=== PATIENT | male | born 1940 | race Hispanic/Latino ===

== ENCOUNTER → 2018-09-17 | Outpatient (CLI) | payer MEDICARE, OTHER ==
[~2018-09-17] MED LIST: ASPIRIN81 MG PO; FENOFIBRATE145 MG PO; FISH OIL 1,2001 EACH; FISH OIL OMEGA1 EACH PO; FORFIVO XL450 MG PO; GLUCOSAMINE CO1 EACH PO; LEVOCETIRIZINE D5 MG PO; LEVOTHYROXINE100 MCG PO; LOSARTAN-HCTZ1 EAC2 PO; OMEPRAZOLE20 M1 PO
--- NOTE | 2018-09-17 14:02 | Diagnostic Imaging Report ---
Examination: CT head without contrast Clinical Indication: Unsteady gait; mild cognitive impairment. Technique: Transaxial noncontrast images from the skull base through the vertex were obtained. Sagittal and coronal reformatted images were done. Dose modulation, iterative reconstruction, and/or weight based adjustment of the mA/kV was utilized to reduce the radiation dose to as low as reasonably achievable. Comparison: None. Findings: Scalp: No abnormalities. Bones: Intact. No fractures. No blastic or lytic lesions. Brain sulci: Appropriate for patient's age. Ventricles: Normal in size and configuration. No hydrocephalus. . Extra-axial space: No abnormalities. Parenchyma: There are mild patchy areas of low-attenuation within subcortical and periventricular white matter, nonspecific, but could represent microvascular ischemic disease. No masses, hemorrhage, or acute or chronic cortical based vascular insults. Suprasellar region: No abnormalities. Craniocervical junction: The foramen magnum is patent. No Chiari one malformation. Impression: 1. No acute intracranial finding. 2. Mild chronic microvascular ischemic change. Signed by: Dr. Daily Lorenzo M.D. on 09/17/2018 1:58 PM
== END ==
LOC: CT 12:37
PROVIDERS: ATTEND Student in an Organized Health Care Education/Training Program
DX: G31.84 Mild cognitive impairment of uncertain or unknown etiology (principal); R26.9 Unspecified abnormalities of gait and mobility
CPT/HCPCS: 70450

== ENCOUNTER 2019-12-29 07:18 | Observation (INO) | payer MEDICARE, OTHER ==
[2019-12-26 11:46] LABS: BASOPHILS % 0.4 % (0.0-1.0); EOSINOPHILS # (AUTO) 0.1 (0.0-0.4); EOSINOPHILS % 1.5 % (0.0-6.0); HEMATOCRIT 42.2 % (38.2-49.6); HEMOGLOBIN 13.8 g/dL (14.0-18.0); LYMPHOCYTES # (AUTO) 1.4 (1.0-3.2); LYMPHOCYTES % 15.4 % (18.0-39.1); MEAN CORPUSCULAR HEMOGLOBIN 28.4 pg (28-32); MEAN CORPUSCULAR HGB CONC 32.7 g/dL (31-35); MEAN CORPUSCULAR VOLUME 86.8 fL (81-99); MONOCYTES # (AUTO) 0.8 (0.2-0.8); MONOCYTES % 8.8 % (4.4-11.3); NEUTROPHILS # (AUTO) 6.6 (2.1-6.9); NEUTROPHILS % 73.2 % (38.7-80.0); PLATELET COUNT 220 x10e3/uL (140-360); RED BLOOD COUNT 4.86 x10e6/uL (4.3-5.7); RED CELL DISTRIBUTION WIDTH 14.5 % (11.7-14.4)
[2019-12-26 12:00] LABS: ANION GAP 16.2 mmol/L (8-16); CALCIUM 9.5 mg/dL (8.4-10.2); CREATININE, SERUM 1.7 mg/dL (0.72-1.25); POTASSIUM 4.2 mmol/L (3.5-5.1)
[2019-12-26 12:09] LABS: INR 0.97; PROTHROMBIN TIME 13.4 seconds (11.9-14.5)
[2019-12-26 12:10] LABS: PARTIAL THROMBOPLASTIN TIME 33.1 seconds (23.8-35.5)
--- NOTE | 2019-12-26 12:47 | Diagnostic Imaging Report ---
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 Lungs:The lungs are mildly hyperexpanded. No focal consolidation or pulmonary edema. Trace scarring/atelectasis is noted at the lung bases. Increased AP diameter of the chest is noted. Flattening of the hemidiaphragms is noted. Pleura:No pleural effusion. No pneumothorax. Heart/Mediastinum:The cardiomediastinal silhouette is normal in size and contour. Thoracic aorta is slightly tortuous with calcifications of the aortic knob. Bones/Soft Tissues: No acute osseous abnormality. Moderate multilevel degenerative changes of the spine are noted. Upper abdomen: Unremarkable. IMPRESSION: 1. Negative for focal consolidation. 2. Increased AP diameter of the chest and hyperexpansion with basilar scarring can be seen in patients with emphysematous changes. Signed by: Antonino Lui MD on 12/26/2019 12:43 PM
[~2019-12-29] VITALS: Ht 172.7 cm; Wt 108.9 kg
[~2019-12-29 07:18] MED LIST changes: +ACETAMINOPHEN 1000 MG/100 ML 100 ML IV ONE; +ARICEPT5 MG PO; +CHOLESTYRAMINE P4 GM PO; +GABAPENTIN100 MG PO; +IBUPROFEN 800MG/ 200ML 200 ML IV ONE; +LIDOCAINE 1% W/EPINEPHRINE 20 ML VIAL ONE; +LIDOCAINE HCL (LTA) 4 ML SOLN ONE; +MULTI-VITAMIN1 EACH PO; +PLAVIX75 MG PO; +PRIMIDONE1 GM PO; +THROMBIN FOR SOLN 5,000 UNIT VIAL ONE; +TRULICITY0.75 MG/0. SC; +VANCOMYCIN HCL 1 GM VIAL ONE; +WELLBUTRIN XL150 MG PO; +ZINC SULFATE220 MG PO; +ZYRTEC-D TABLE1 EACH PO
[2019-12-29] MEDS ORDERED: CEFAZOLIN SOD 1 GM/NS 50ML 100 ML IV ONE (08:39)
[2019-12-29] MEDS ORDERED: PROMETHAZINE HCL (IM) 25 MG/ML VIAL IM PRN (10:00)
[2019-12-29] MEDS ORDERED: ONDANSETRON HCL INJ 2MG/ML 2ML 2 MG/ML VIAL IV PRN (10:00)
[2019-12-29] MEDS ORDERED: MORPHINE SULFATE 5 MG/ML VIAL IM PRN (10:00)
[2019-12-29] MEDS ORDERED: ACETAMINOPHEN 325 MG TAB PO PRN (10:00)
[2019-12-29] MEDS ORDERED: MAGNESIUM/ALUMINUM/SIMETHICONE 30 ML UDC PO PRN (10:00)
[2019-12-29] MEDS ORDERED: CARISOPRODOL 350 MG TAB PO PRN (10:00)
[2019-12-29] MEDS ORDERED: HYDROMORPHONE 2MG/ML 2 MG/ML ML IV PRN (10:00)
[2019-12-29] MEDS ORDERED: SUGAMMADEX SODIUM 200 MG/2 ML VIAL IV ONE (10:01)
--- OUTSIDE RECORDS SUMMARY | 2019-12-29 10:39 | XMS REPORT | Continuity of Care Document ---
Author Author Formerly [facility] t Organization [facility] Address [address] [place] [address] Phone Unavailable Care Team Providers Care Craniologist Name Role Phone BRITTANY STEVE Attphys Unavailable LEYDA CROUCH M.D. Attphys Unavailabl e YEYO BARON M.D. Attphys Unavailable DOE GUPTA M.D. Attphys Unavailable SE, ECHO Attphys Unavailable MARY MICHAUD M.D. Attphys Unavailable LENA CAM MD Attphys Unavailable Jairo CHANDLER Attphys Unavailable ZOILA VAZQUEZ M.D. Attphys Unavailabl e SE, NUCLEAR Attphys Unavailable Problems Condition Name Condition Details Condition Category Status Onset Date Resolution Date Last Treatment Date Treating Clinician Comments Source Thyroid disorder Thyroid disorder Problem Active [facility] Hypertension Hypertension Problem Active [facility] Dyslipidemia Dyslipidemia Problem Active [facility] Chronic venous insufficiency Chronic venous insufficiency Problem Active [facility] Obesity Obesity Problem Active [facility] Shortness of breath Shortness of breath Problem Active [facility] Lung nodule Lung nodule Problem Active [facility] Status post transcatheter aortic valve replacement Sta tus post transcatheter aortic valve replacement Problem Active [facility] Chronic orthostatic hypotension Chronic orthostatic hypotension Pro blem Active [facility] Preoperative cardiovascular examination Preoperative cardiov ascular examination Problem Active [facility] Dizziness Dizziness Problem Active [facility] Sensorineural hearing loss (SNHL) of both ears Sensori neural hearing loss (SNHL) of both ears Problem Active [facility] Allergies, Adverse Reactions, Alerts This patient has no known allergies or adverse reactions. Family History Family Member Diagnosis Comments Start Date Stop Date Source Mother Family history of malignant neoplasm [facility] Social History Smoking Status Start Date Stop Date Source Never smoked tobacco (finding) [facility] Medications Ordered Medication Name Filled Medication Name Start Date Stop Da te Current Medication? Ordering Clinician Indication Dosage Frequency Signature (SIG) Comments Components Source Plavix 75 MG Oral Tablet Plavix 75 MG Oral Tablet 2019-08-01 00:00:00 Yes M.D. 1 QD TAKE 1 TABLET DAILY [facility] Aspirin 81 MG Oral Tablet Delayed Release Aspirin 81 M G Oral Tablet Delayed Release 2017-11-06 00:00:00 Yes M.D. TAKE 1 TAB LET BY MOUTH EVERY DAY [facility] Donepezil HCl - 10 MG Oral Tablet Donepezil HCl - 10 MG Oral Tablet 2017-11-06 00:00:00 Yes M.D. 1 QD TAKE [address] [facility] Omeprazole 20 MG Oral Tablet Delayed Release Omeprazol e 20 MG Oral Tablet Delayed Release 2017-11-06 00:00:[address] [facility] Alfuzosin HCl ER 10 MG Oral Tablet Extended Release 24 Hour Alfuzosin HCl ER 10 MG Oral Tablet Extended Release 24 Hour 2017-11-06 00:00:00 Yes M.D. 1 QD TAKE [address] [facility] Primidone 50 MG Oral Tablet Primidone 50 MG Oral Tablet 2017-11-06 00:00:00 Yes M.D. BID [facility] Levothyroxine Sodium 100 MCG Oral Tablet Levothyroxine Sodium 100 MCG Oral Tablet 2017-11-06 00:00:00 Yes M.D. 1 QD TAKE [address] [facility] buPROPion HCl ER (XL) 150 MG Oral Tablet Extended Rele ase 24 Hour buPROPion HCl ER (XL) 150 MG Oral Tablet Extended Release 24 Hour 2017-11-06 00:00:[address] [facility] Fenofibrate 160 MG Oral Tablet Fenofibrate 160 MG Oral Table t 2017-11-06 00:00:00 Yes M.D. 1 QD TAKE [address] [facility] Cholestyramine POWD Cholestyramine POWD Yes M.D. [facility] Finasteride 5 MG Oral Tablet Finasteride 5 MG Oral Tablet Y es M.D. 1 QD TAKE [address] [facility] Gabapentin 100 MG Oral Capsule Gabapentin 100 MG Oral Capsule Yes M.D. TAKE 2 CAPSULES AT BEDTIME. [facility] Trulicity 0.75 MG/0.5ML Subcutaneous Solution Pen-inje ctor Trulicity 0.75 MG/0.5ML Subcutaneous Solution Pen-injector Yes M.Carley [facility] Zyrtec TABS Zyrtec TABS Yes M.Carley U [facility] Zinc 50 MG Oral Tablet Zinc 50 MG Oral Tablet Yes M.Carley [facility] Vitamin D-3 CAPS Vitamin D-[address]S [address] [facility] Losartan Potassium-HCTZ 50-12.5 MG Oral Tablet Losarta n Potassium-HCTZ 50-12.5 MG Oral Tablet Yes M.D. 1 QD TAKE [address] [facility] Clopidogrel Bisulfate TABS Clopidogrel Bisulfate TABS Yes M.Carley [facility] Vital Signs Vital Name Observation Time Observation Value Comments Source Body temperature 2019-12-02 14:51:00 98 [degF] Method: Temporal [facility] Systolic blood pressure 2019-08-08 10:09:00 179 mm[Hg] [facility] Diastolic blood pressure 2019-08-08 10:09:00 84 mm[Hg] [facility] Body height 2019-08-08 10:09:00 75 [in_us] [facility] Weight 2019-08-08 10:09:00 283 [lb_av] [facility] Body mass index (BMI) [Ratio] 2019-08-08 10:09:00 35.37 kg/m2 [facility] Body temperature 2019-08-08 10:09:00 97.1 [degF] [facility] Heart Rate 2019-08-08 10:09:00 89 /min [facility] Systolic blood pressure 2019-08-01 14:55:00 150 mm[Hg] Loca tion: LUE; Position: Sitting [facility] Diastolic blood pressure 2019-08-01 14:55:00 93 mm[Hg] Loc ation: LUE; Position: Sitting [facility] Body height 2019-08-01 14:55:00 75 [in_us] [facility] Weight 2019-08-01 14:55:00 283 [lb_av] [facility] Body mass index (BMI) [Ratio] 2019-08-01 14:55:00 35.37 kg/m2 [facility] Heart Rate 2019-08-01 14:55:00 66 /min Location: L Radial; [facility] Systolic blood pressure 2019-07-13 10:53:00 123 mm[Hg] Loca tion: LUE; Position: Sitting [facility] Diastolic blood pressure 2019-07-13 10:53:00 87 mm[Hg] Loc ation: LUE; Position: Sitting [facility] Systolic blood pressure 2019-07-13 10:52:00 143 mm[Hg] Loca tion: LUE; Position: Supine [facility] Diastolic blood pressure 2019-07-13 10:52:00 89 mm[Hg] Loc ation: LUE; Position: Supine [facility] Heart Rate 2019-07-13 10:52:00 80 /min Location: L Radial; [facility] Systolic blood pressure 2019-04-25 11:22:00 94 mm[Hg] [facility] Diastolic blood pressure 2019-04-25 11:22:00 66 mm[Hg] [facility] Body height 2019-04-25 11:22:00 75 [in_us] [facility] Weight 2019-04-25 11:22:00 282 [lb_av] [facility] Body mass index (BMI) [Ratio] 2019-04-25 11:22:00 35.25 kg/m2 [facility] Systolic blood pressure 2019-04-11 12:42:00 129 mm[Hg] [facility] Diastolic blood pressure 2019-04-11 12:42:00 82 mm[Hg] [facility] Body height 2019-04-11 12:42:00 75 [in_us] [facility] Weight 2019-04-11 12:42:00 282 [lb_av] [facility] Body mass index (BMI) [Ratio] 2019-04-11 12:42:00 35.25 kg/m2 [facility] Systolic blood pressure 2019-03-29 14:38:00 133 mm[Hg] Loca tion: LUE; Position: Sitting [facility] Diastolic blood pressure 2019-03-29 14:38:00 84 mm[Hg] Loc ation: LUE; Position: Sitting [facility] Body height 2019-03-29 14:38:00 75 [in_us] [facility] Weight 2019-03-29 14:38:00 283 [lb_av] [facility] Body mass index (BMI) [Ratio] 2019-03-29 14:38:00 35.37 kg/m2 [facility] Heart Rate 2019-03-29 14:38:00 89 /min Location: L Radial; Q uality: Normal [facility] BP Systolic 2019-01-03 11:00:00 130 mm[Hg] [facility] BP Diastolic 2019-01-03 11:00:00 78 mm[Hg] [facility] Height 2019-01-03 11:00:00 75 [in_us] [facility] Weight 2019-01-03 11:00:00 285 [lb_av] [facility] Body Mass Index Calculated 2019-01-03 11:00:00 35.62 kg/m2 [facility] BP Systolic 2018-12-20 10:18:00 140 mm[Hg] Location: BRYN Roberts on: Sitting [facility] BP Diastolic 2018-12-20 10:18:00 86 mm[Hg] Location: BRYN Roberts on: Sitting [facility] Height 2018-12-20 10:18:00 75 [in_us] [facility] Weight 2018-12-20 10:18:00 285 [lb_av] [facility] Body Mass Index Calculated 2018-12-20 10:18:00 35.62 kg/m2 [facility] Heart Rate 2018-12-20 10:18:00 90 /min [facility] BP Systolic 2017-11-26 12:08:00 124 mm[Hg] [facility] BP Diastolic 2017-11-26 12:08:00 75 mm[Hg] [facility] Height 2017-11-26 12:08:00 75 [in_us] [facility] Weight 2017-11-26 12:08:00 287 [lb_av] [facility] Body Mass Index Calculated 2017-11-26 12:08:00 35.87 kg/m2 [facility] Heart Rate 2017-11-26 12:08:00 70 /min [facility] BP Systolic 2017-11-06 09:59:00 163 mm[Hg] [facility] BP Diastolic 2017-11-06 09:59:00 80 mm[Hg] [facility] Height 2017-11-06 09:59:00 75 [in_us] [facility] Weight 2017-11-06 09:59:00 284 [lb_av] [facility] Body Mass Index Calculated 2017-11-06 09:59:00 35.5 kg/m2 [facility] Heart Rate 2017-11-06 09:59:00 75 /min [facility] Procedures Procedure Date / Time Performed Performing Clinician Sour e CT Chest biopsy needle [place] guided [id number] 2019-04-25 00:00:00 [facility] PET CT Tumor [id number] 2019-04-25 00:00:00 [facility] [QL] CMP W/EGFR 2019-03-29 00:00:00 [facility] [[facility]] CBC (INCLUDES DIFF/PLT) 2019-03-29 00:00:[address] [facility] [QL] CMP W/EGFR 2019-03-29 00:00:00 [facility] [QL] CBC (INCLUDES DIFF/PLT) 2019-03-29 00:00:00 [facility] [[facility]] B TYPE NATRIURETIC PEPTIDE (BNP) 2017-11-13 00:00:00 [facility] [[facility]] CBC (INCLUDES DIFF/PLT) 2017-11-13 00:00:00 [facility] [QL] CMP W/EGFR 2017-11-13 00:00:00 [facility] [QL] HEMOGLOBIN A1c 2017-11-13 00:00:00 [facility] [QL] LIPID PANEL 2017-11-13 00:00:00 [facility] [QL] MAGNESIUM 2017-11-13 00:00:00 [facility] [[facility]] TSH, 3RD GENERATION 2017-11-13 00:00:00 [facility] of Tonsillectomy [facility] History of Hernia Repair [facility] History of Gallbladder Surgery [facility] History of Cataract Surgery [facility] Plan of Care Planned Activity Planned Date Details Comments Source Future Scheduled Test [QLH] CMP W/EGFR [code = [ QLH] CMP W/EGFR] Before next appointment [facility] Future Scheduled Test [QLH] CBC (INCLUDE S DIFF/PLT) [code = [QLH] CBC (INCLUDES DIFF/PLT)] Before next appointment [facility] Future Scheduled Test [QLH] CMP W/EGFR [code = [ QLH] CMP W/EGFR] Before next appointment [facility] Future Scheduled Test [QLH] CBC (INCLUDE S DIFF/PLT) [code = [QLH] CBC (INCLUDES DIFF/PLT)] Before next appointment [facility] Future Appointment 2020-07-16 10:30:[address] [facility] Future Appointment 2020-07-06 11:00:00 [facility] 2020-07-06 10:15:00 ECHO SE, [facility] Encounters Start Date/Time End Date/Time Encounter Type Admission Type Attendi [facility] Care Department Encounter ID Source 2019-06-29 06:25:00 Inpatient MHSE MHSE [id number] [facility] 2019-12-02 15:00:00 2019-12-02 15:00:00 Appointment; LEYDA BERG M.D. GOMEZ-RIVERA, FERNANDO, M.D. [facility] Gallito rhinolaryngology [facility] [id number] [facility] 2019-11-21 11:00:00 2019-11-21 11:00:00 Appointment; YEYO BARON M.D. GEORGE, BENNET, M.D. [facility] [id number] [facility] 2019-11-16 13:24:00 2019-11-16 13:24:00 Outpatient MHSE PUL [id number] [facility] 2019-11-11 12:26:00 2019-11-11 12:26:00 Outpatient MHSE CAR [id number] [facility] 2019-10-12 13:01:00 2019-10-12 13:01:00 Outpatient MHSE CAR [id number] [facility] 2019-09-12 12:53:00 2019-09-12 12:53:00 Outpatient MHSE CAR [id number] [facility] 2019-08-11 10:04:00 2019-08-11 10:04:00 Outpatient MHSE CAR [id number] [facility] 2019-08-08 13:34:00 2019-08-08 13:34:00 Outpatient MHSE PUL [id number] [facility] 2019-08-08 10:00:00 2019-08-08 10:00:00 Appointment; DOE GUPTA M.D. NAHAS, CESAR, M.D. [facility] Cardiothoracic & Vascular Surgery [facility] [id number] [facility] 2019-08-01 15:15:00 2019-08-01 15:15:00 Appointment; YEYO BARON M.D. GEORGE, BENNET, M.D. [facility] [id number] [facility] 2019-08-01 14:30:00 2019-08-01 14:30:00 Appointment; SE, ECHO SE, ECHO [facility] [id number] [facility] 2019-07-13 10:30:00 2019-07-13 10:30:00 Appointment; YEYO BARON M.D. GEORGE, BENNET, M.D. [facility] [id number] [facility] 2019-06-29 06:30:00 2019-06-29 06:30:00 Appointment; DOE GUPTA M.D. NAHAS, CESAR, M.D. [facility] [id number] [facility] 2019-05-16 10:00:00 2019-05-16 10:00:00 Appointment; DOE GUPTA M.D. NAHAS, CESAR, M.D. [facility] Cardiothoracic & Vascular [facility] [id number] [facility] 2019-05-12 13:20:00 2019-05-12 13:20:00 Outpatient MHSE MHSE [id number] [facility] 2019-05-04 07:43:00 2019-05-04 07:43:00 Outpatient MHSE MHSE [id number] [facility] 2019-04-25 11:15:00 2019-04-25 11:15:00 Appointment; DOE GUPTA M.D. NAHAS, CESAR, M.D. [facility] Cardiothoracic & Vascular Surgery [facility] [id number] [facility] 2019-04-20 10:30:00 2019-04-20 10:30:00 Appointment; DOE GUPTA M.D. NAHAS, CESAR, M.D. [facility] Cardiothoracic & Vascular Surgery [facility] [id number] [facility] 2019-04-20 10:20:00 2019-04-20 10:20:00 Appointment; BEL MICHAUD M.D. DHOBLE, ABHIJEET, M.D. [facility] [id number] [facility] 2019-04-14 09:22:00 2019-04-14 09:22:00 Outpatient MHSE MHSE [id number] [facility] 2019-04-11 12:30:00 2019-04-11 12:30:00 Appointment; DOE GUPTA M.D. NAHAS, CESAR, M.D. [facility] Cardiothoracic & Vascular Surgery [facility] [id number] [facility] 2019-04-06 15:15:00 2019-04-06 15:15:00 Appointment; YEYO BARON M.D. GEORGE, BENNET, M.D. [facility] Center for Advanced Heart Failure [facility] [id number] [facility] 2019-04-01 08:03:00 2019-04-01 08:03:00 Outpatient MHSE CAR [id number] [facility] 2019-03-29 14:30:00 2019-03-29 14:30:00 Appointment; YEYO BARON M.D. GEORGE, BENNET, M.D. [facility] [id number] [facility] 2019-01-03 10:15:00 2019-01-03 10:15:00 Appointment; DOE GUPTA M.D. NAHAS, CESAR, M.D. [facility] Cardiothoracic & Vascular Surgery [facility] [id number] [facility] 2018-12-20 10:00:00 2018-12-20 10:00:00 Appointment; YEYO BARON M.D. GEORGE, BENNET, M.D. [facility] [id number] [facility] 2018-12-14 10:15:00 2018-12-14 10:15:00 Outpatient MHSE MHSE [id number] [facility] 2018-11-16 11:00:00 2018-11-16 11:00:00 Appointment; YEYO BARON M.D. GEORGE, BENNET, M.D. [facility] UTP [id number] [facility] 2018-11-12 11:00:00 2018-11-12 11:00:00 Appointment; ARGELIA CAM MD MANRIQUE, CARLOS, MD [facility]TP [id number] [facility] 2018-05-27 11:00:00 2018-05-27 11:00:00 Appointment; ZOILA VAZQUEZ M.D. ESCOBAR CAMARGO, JORGE, M.D. [facility] [id number] [facility] 2017-11-26 11:00:00 2017-11-26 11:00:00 Appointment; ZOILA VAZQUEZ M.D. ESCOBAR CAMARGO, JORGE, M.D. [facility] [id number] [facility] 2017-11-17 08:30:00 2017-11-17 08:30:00 Appointment; SE, NUCLEAR SE, NUCLEAR [facility] [id number] [facility] 2017-11-12 08:00:00 2017-11-12 08:00:00 Appointment; SE, ECHO SE, ECHO [facility] UTP [id number] [facility] 2017-11-12 08:00:00 2017-11-12 08:00:00 Appointment; SE, ECHO SE, ECHO [facility] [id number] [facility] 2017-11-06 09:45:00 2017-11-06 09:45:00 Appointment; ZOILA VAZQUEZ M.D. ESCOBAR CAMARGO, JORGE, M.D. [id number] Results Test Description Test Time Test Comments Results Result Comments Source CHEST 2 VIEWS 2019-12-26 12:41:00 [facility] 1940 Sex: M [facility] [address] [address] Patient Name: LUISITO CHUN MR #: [id number] : 1940 Age/Sex: 79/M Req #: [id number] [facility] Physician: Ordered by: BRITTANY STEVE MD Report #: [id number] Location: OR Room/Bed: Procedure: [id number] DX/CHEST 2 VIEWS Exam Date: 12/26/19 Exam Time: 1145 REPORT STATUS: Signed Exam: CHEST 2 VIEWS Date: 12/26/2019 12:42 PM INDICATION: [id number] PRE OP Comparison: None FINDINGS: Lines/Tubes:Prosthetic cardiac valve is noted on lateral view and not well visualized on AP view. Lungs:The lungs are mildly hyperexpanded. No focal consolidation or pulmonary edema. Trace scarring/atelectasis is noted at the lung bases. Increased AP diameter of the chest is noted. Flattening of the hemidiaphragms is noted. Pleura:No pleural effusion. No pneumothorax. Heart/Mediastinum:The cardiomediastinal silhouette is normal in size and contour. Thoracic aorta is slightly tortuous with calcifications of the aortic knob. Bones/Soft Tissues: No acute osseous abnormality. Moderate multilevel degenerative changes of the spine are noted. Upper abdomen: Unremarkable. IMPRESSION: 1. Negative for focal consolidation. 2. Increased AP diameter of the chest and hyperexpansion with basilar scarring can be seen in patients with emphysematous changes. Signed by: Kellee Lui MD on 12/26/2019 12:43 PM Dictated By: KELLEE LUI MD [id number] Transcribed By: PETER on 12/26/19 1243 COPY TO: BRITTANY VALIENTE MD PET CT Lung solitary pulm nodule [id number] 2019-05-12 13:53:00 PROCEDURE INFORMATION:Exam: PET/CT Skull Base to Mid-thighExam date and time: 05/12/2019 2:40 PMAge: 78 years oldClinical indication: Solitary pulmonary nodule; Additional info: R91.1 solitarypulmonary nodule/ctdi= 13.04 mgy, dlp= 1365mgy*cmTreatment strategy for malignancy (PET staging): Initial Staging (PI)LABS AND CLINICAL REPORTS:Glucose: 117 mg/dlTECHNIQUE:Imaging protocol: Following at least four-hour fasting and following theinjection of F-18-FDG, low dose CT images were obtained from the orbital meatalline through the pelvis. Then, PET images were obtained through the sameregion. Attenuation corrected images were constructed using the CT scan. Fusedimages of PET and CT were reviewed. The standardized uptake values (SUV)reported below are maximum values within a region of interest, expressed ingm/ml.3D rendering: MIP and/or 3D reconstructed images were created by thetechnologist.Radiopharmaceutical: 8 mCi F18-FDG, IVTime of imaging post radiopharmaceutical administration: 1 hourInjection site: Right antecubital regionCOMPARISON:CT 04/14/2019FINDINGS:Head: No suspicious activity.Neck: No suspicious activity.Chest: 3 cm masslike opacity in the right middle lobe is not significantlychanged accounting for differences in slice thickness and has SUV of 7.7.Adjacent tree-in-bud opacities in the right middle lobe and subpleuralground-glass opacities in the lower lobes and lingula are stable. Se veral smalllymph nodes in the mediastinum are stable with a 1 cm lower right paratrachealnode having an SUV of 3.1, image 93.Abdomen and Pelvis: No suspicious activity.Bones/joints: No suspicious activity.Soft tissues: No suspicious activity.IMPRESSION:3 cm masslike opacity right middle lobe of the lung is active. Although biopsydemonstrated inflammatory change, bronchogenic carcinoma remains possible.Repeat biopsy or follow-up CT in 3 months.Airspace disease in the right middle lobe is stable and may reflect aninfectious bronchiolitis. Stable airspace disease in the lower lobes andlingula may reflect an interstitial pneumonia or pneumonitis.1 cm lymph node in the mediastinum is mildly active and indeterminate forreactive node versus metastasis.Hank Crockett MD On 05/13/2019 07:49:15; [id number] by: Hank Crockett MDDictated Date/time: 05/13/19 07:49Electronically Signed by: Hank Crockett MD 05/12/2006:49FINAL REPORT [facility] VR Biopsy lung/chest [id number] 2019-05-04 09:09:00 P ROCEDURE INFORMATION:Exam: IR Percutaneous Needle Lung BiopsyExam date and time: 05/04/2019 8:39 AMAge: 78 years oldClinical indication: 3.8 cm mass in the right lung found incidentally duringworkup for TAVR.NEEDLE BIOPSY RIGHT LUNG:Procedure: The procedure was done in the Interventional CT scanner usingsterile technique, local anesthetic and CT guidance (total DLP 1418.54 mGycm).The procedure was done without moderate sedation.Preliminary CT showed a persistent mass in the lateral segment of the rightmiddle lobe. The lesion appeared slightly smaller compared to the previous CT.A 19 gauge guide needle was then placed from a right lateral intercostaladjacent to the lesion. Multiple cores of tissue were then obtained using acoaxial 20 gauge cutting needle and placed into formalin for histology. Some ofthe cores appeared to be mucinous. One core was also sent for cultures. Postbiopsy images showed no pneumothorax or other complication.The patient tolerated the procedure well without immediate complications, andwas transferred to Special Procedures Observation in stable condition.Follow-up chest radiographs showed no evidence of pneumothorax.Comment: The lesion may be decreasing in size, suggesting an inflammatoryrather than neoplastic lesion, although this is uncertain. If the pathology isnondiagnostic, consider follow-up imaging rather than re-biopsy.Uri Madrigal MD On 05/04/2019 16:59:07; [id number]--Izmn by: Uri Ruiz MDDictated Date/time: 05/04/19 16:59Electronically Signed by: Uri Ruiz MD 05/04/2015:59FINAL REPORT [facility] CTA Chest/Abd/Pelvis TAVR [id number] 2019-04-15 16:21:00 Radiation Dose CTDIVOL = 0 (mGy): DLP = 1080.7 (mGy-cm)PROCEDURE INFORMATION:Exam: CT Angiography Chest With ContrastExam date and time: 04/14/2019 11:38 AMAge: 78 years oldClinical indication: Injury or trauma; Additional info: Shortness ofbreath/tavr ctaTECHNIQUE:Imaging protocol: Computed tomographic angiography of the chest withintravenous contrast.3D rendering: MIP and/or 3D reconstructed images were created by thetechnologist.Total DLP: 1080.7 mGy-cmRadiation optimization: All CT scans at this facility use at least one of thesedose optimization techniques: automated exposure control; mA and/or kVadjustment per patient size (includes targeted exams where dose is matched toclinical indication); or iterative reconstruction.Contrast material: OMNI 350; Contrast volume: 90 ml; Contrast route: IV; COMPARISON:No relevant prior studies available.FINDINGS:Pulmonary arteries: Normal. No pulmonary emboli.Aorta: Unremarkable. No aortic aneurysm. No aortic dissection.Lungs: Right middle lobe pulmonary nodule (series 3, image 126) measures 3.8 x2.7 cm with spiculated margins. There is a cluster of tree-in-bud nodulessuperior and anterior to the mass in the right middle lobe. No consolidationidentified. No endobronchial abnormality is evident.Pleural space: Unremarkable. No pneumothorax. No pleural effusion.Heart: Unremarkable. No cardiomegaly. No pericardial effusion.Lymph nodes: Unremarkable. No enlarged lymph nodes.Bones/joints: No acute osseous abnormalities. No suspicious lytic or blasticosseous lesions.Soft tissues: Unremarkable. PROCEDURE INFORMATION:Exam: CT Angiography Abdomen and Pelvis With ContrastExam date and time: 04/14/2019 11:38 AMAge: 78 years oldClinical indication: Injury or trauma; Additional info: Shortness ofbreath/tavr ctaTECHNIQUE:Imaging protocol: Computed tomographic angiography of the abdomen and pelviswith intravenous contrast material.3D rendering: MIP and/or 3D reconstructed images were created by thetechnologist.Total DLP: 1080.7 mGy-cmRadiation optimization: All CT scans at this facility use at least one of thesedose optimization techniques: automated exposure control; mA and/or kVadjustment per patient size (includes targeted exams where dose is matched toclinical indication); or iterative reconstruction.Contrast material: OMNI 350; Contrast volume: 90 ml; Contrast route: IV; COMPARISON:No relevant prior studies available.FINDINGS:Aorta: No aortic aneurysm. No aortic dissection.Celiac trunk and mesenteric arteries: No occlusion or significant stenosis.Renal arteries: No occlusion or significant stenosis.Right iliac arteries: Right common iliac artery: 14 mm Right External iliacartery: 10 mmRight femoral/popliteal arteries: Right Common femoral artery: 12 mmLeft iliac arteries: Left common iliac artery: 16 mm Left External iliacartery: 10 mmLeft femoral/popliteal arteries: Left common femoral artery: 11 mmLiver: Diffuse hepatic steatosis is present.Gallbladder and bile ducts: Gallbladder has been removed.Pancreas: Unremarkable. No mass. No ductal dilation.Spleen: Unremarkable. No splenomegaly.Adrenals: Unremarkable. No mass.Kidneys and ureters: Unremarkable. No solid mass. No hydronephrosis.Stomach and bowel: Sigmoid and descending colonic diverticulosis is presentwithout evidence for diverticulitis.Appendix: No evidence of appendicitis.Intraperitoneal space: Unremarkable. No free air. No significant fluidcollection.Lymph nodes: Unremarkable. No enlarged lymph nodes.Bladder: Unremarkable. No mass.Reproductive: Unremarkable as visualized.Bones/joints: No acute osseous abnormalities. No suspicious lytic or blasticosseous lesions.Soft tissues: Small periumbilical hernia contains fat only. IMPRESSION:CT Angiography Chest With ContrastThe chest impression is included in the impression of the abdomen and pelvis.CT Angiography Abdomen and Pelvis With Contrast1. 3.8 cm spiculated right middle lobe pulmonary mass, worrisome for lungadenocarcinoma. PET-CT or tissue diagnosis is suggested for further evaluation.2. Cluster of tree-in-bud nodules anterior to the right middle lobe pulmonarymass could represent endobronchial infection or satellite nodule/lymphangitiscarcinomatosis.3. Pre TAVR measurements for the iliac and femoral arteries as described above.Please see same-day CT angiography of the chest for further details.4. Hepatic steatosis.5. Sigmoid and descending colonic diverticulosis without diverticulitis.Dominic Lutz MD On 04/17/2019 22:26:09; [id number]--Pbzd by: Dominic Lutz MDDictated Date/time: 04/17/19 22:39Electronically Signed by: Dominic Lutz MD 04/16/2021:39FINAL REPORT [facility] CTA Heart/Coronary art TAVR [id number] 2019-04-15 16:21:00 Radiation Dose CTDIVOL = 0 (mGy): DLP = 575.2 (mGy-cm)PROCEDURE INFORMATION:Exam: CTA Heart and Coronary Arteries with IV ContrastExam date and time: 04/14/2019 11:38 AMAge: 78 years oldClinical indication: Pain; Additional info: Shortness of breath/please alsoscan the carotids and dictate on reportTECHNIQUE:Imaging protocol: CTA heart, coronary arteries and bypass grafts (when present)with IV contrast material. A step and shoot prospective trigger technique wasused.Sequences: A noncontrast calcium score was acquired followed by acontrast-enhanced coronary CT angiography.3D renderinD reconstructions were obtained and submitted forinterpretation. DICOM images are available. MIP and/or 3D reconstructed imageswere created by the technologist.Total DLP: 575.2 mGy-cmScanner: 64/128/256/revolution scanner.Radiation optimization: All CT scans at this facility use at least one of thesedose optimization techniques: automated exposure control; mA and/or kVadjustment per patient size (includes targeted e xams where dose is matched toclinical indication); or iterative reconstruction.Contrast material: OMNI 350ML; Contrast volume: 100 ml; Contrast route: IV; Pharmacological intervention: 0.4 mg sub-lingual nitroglycerine was given toachieve coronary vasodilation. dosage Metoprolol was given to reduce heartrate.COMPARISON:No relevant prior studies available.FINDINGS:Aortic annulus: Tricuspid aortic valve. Aortic annulus: 37.6 x 39.1 mm. Area:129 sq mm. Perimeter: 136 mm.Annulus to origin of the left coronary artery: 17.5 mm. Annulus to origin ofthe right coronary artery: 21.7 mm.Impression:1. Preoperat norma TAVR measurements as above.2. Refer to CTA chest, abdomen and pelvis for measurements of the iliac andfemoral arteries and nonvascular findings including 3.8 cm possible malignantneoplasm in the right middle lobe of the lung.Hank Crockett MD On 04/19/2019 09:39:42; [id number]--Leox by: Hank Crockett MDDictated Date/time: 04/19/19 09:39Electronically Signed by: Hank Crockett MD 04/18/2008:39FINAL [facility] CBC (INCLUDES DIFF/PLT) 2019-03-29 16:25:01 Test Item WBC (test code = 6690-2) 9.6 {K/CMM} 3.7-10.4 RBC (test code = 789-8) 5.49 {M/CMM} 4.70-6.10 Hgb (test code = 718-7) 15.9 g/dl 14.0-18.0 Hct (test code = 00595-5) 47.2 % 42.0-54.0 MCV (test code = 787-2) 86.0 fL 80.0-94.0 MCH (test code = 785-6) 28.9 pg 27.0-31.0 MCHC (test code = 786-4) 33.6 g/dl 32.0-36.0 RDW; Above High Threshold (test code = 788-0) 15.1 % 11.5-14. 5 Platelet (test code = 15997-5) 227 {K/CMM} 133-450 Mean Platelet Volume (test code = 07181-5) 8.9 fL 7.4-10.4 [facility]] [id number] 16:25:01* Test Item Value Reference Range Interpretation Comments Segmented Neutrophils (test code = 32420-4) 68.7 % 45.0-75.0 Monocytes (test code = 03364-0) 7.7 % 2.0-12.0 Lymphocytes (test code = 94462-3) 22.5 % 20.0-40.0 Eosinophils (test code = 59428-4) 0.8 % 0.0-4.0 Basophils (test code = 706-2) 0.3 % 0.0-1.0 Segs-Bands # (test code = 50853-4) 6.6 {K/CMM} 1.5-8.1 Lymphocytes # (test code = 40930-4) 2.2 {K/CMM} 1.0-5.5 Monocytes # (test code = 66793-0) 0.7 {K/CMM} 0.0-0.8 Eosinophils # (test code = 34104-8) 0.1 {K/CMM} 0.0-0.5 [facility]] CMP [id number] 16:25:01* Test Item Value Reference Range Interpretation Comments Sodium Level; Below Low Threshold (test code = 2951-2) 133 {mEq/l} 135-145 Potassium Level (test code = 2823-3) 4.1 {mEq/l} 3.5-5.1 Chloride Level (test code = 5-0) 99 {mEq/l} 95-109 Carbon Dioxide (test code = 2027-9) 25 {mEq/l} 24-32 AGAP (test code = 46666-9) 13.1 {mEq/l} 10.0-20.0 Glucose Lvl (test code = 2345-7) 87 mg/dl 70-99 Adult reference range values reflect the clinical guidelinesof the [place] [employer]. Creatinine Lvl; Above High Threshold (test code = 2160-0) 1.80 m g/dl 0.50-1.40 Blood Urea Nitrogen; Above High Threshold (test code = 3094-0) 25 m g/dl 7-22 BUN/Creatinine Ratio (test code = 3097-3) 14 6-25 Total Protein; Above High Threshold (test code = 2885-2) 8.5 g/dl 6.4-8.4 Albumin Lvl (test code = 1751-7) 4.2 g/dl 3.5-5.0 Globulin; Above High Threshold (test code = 54368-1) 4.3 g/dl 2 .7-4.2 A/G Ratio (test code = 1759-0) 1.0 0.7-1.6 Calcium Level Total (test code = 31669-0) 9.6 mg/dl 8.5-10.5 ALT (test code = 1743-4) 55 u/l 0-65 AST; Above High Threshold (test code = 74130-3) 45 u/l 0-37 Alk Phos (test code = 1783-0) 94 u/l 39-136 The pediatric reference ranges for this test represent a CLSI-basedtransference of the CALIPER database of pediatric reference intervals to theCarl [facility] – McalesterCareerise analyzer (Clinical Biochemistry 46 (2013): 0160-2883). [facility] [employer] has not internally validated these referenceranges and therefore they should be used only in the context of a thoroughclinical assessment. Bili Total (test code = 1975-2) 0.4 mg/dl 0.2-1.3 eGFR (test code = 94056-4) 35 {ML/MIN/1.7} The eGFR is calculated using the CKD-EPI formula. In most young, healthyindividuals the eGFR will be >90 mL/min/1.73m2. The eGFR declines with age. AneGFR of 60-89 may be normal in some populations, particularly the elderly, forwhom the CKD-EPI formula has not been extensively validated. Use of the eGFR isnot recommended in the following populations:Individuals with unstable creatinine concentrations, including patients and those with serious co-morbid conditions.Patients with extremes in muscle mass or diet.The data above are obtained from the National Kidney Disease Education Program(NKDEP) which additionally recommends that when the eGFR is used in patientswith extremes of body mass index for purposes of drug dosing, the eGFR shouldbe multiplied by the estimated BMI. [facility] BRAIN [id number] 13:55:00 [place] [address] Patient Name: LUISITO CHUN MR #: [id number] : 1940 Age/Sex: 78/M Req #: [id number] Adm Physician: Ordered by: ARCADIO CHANDLER M.D. Report #: [id number] Location: CT Room/Bed: Procedure: [id number] CT/CT BRAIN WO Exam Date: 09/17/18 Exam Time: 1 317 REPORT STATUS: Signed Examin ation: CT head without contrast Clinical Indication: Unsteady gait; mild cogni tive impairment. Technique: Transaxial noncontrast images from the skull base through the vertex were obtained. Sagittal and coronal reformatted images were done. Dose modulation, iterative reconstruction, and/or weight based adjustme nt of the mA/kV was utilized to reduce the radiation dose to as low as reasona trevor achievable. Comparison: None. Findings: Scalp: No abnormaliti es. Bones: Intact. No fractures. No blastic or lytic lesions. Brain sul ci: Appropriate for patient's age. Ventricles: Normal in size and configuratio n. No hydrocephalus. . Extra-axial space: No abnormalities. Paren chyma: There are mild patchy areas of low-attenuation within subcortical and periventricular white matter, nonspecific, but could represent microvascular ischemic disease. No masses, hemorrhage, or acute or chronic cortical based v ascular insults. Suprasellar region: No abnormalities. Craniocervical shirley ction: The foramen magnum is patent. No Chiari one malformation. Impress ion: 1. No acute intracranial finding. 2. Mild chronic microvascular ischemic change. Signed by: Dr. Bereket Lorenzo M.D. on 09/17/2018 1:58 PM Dictated By: BEREKET CASTELAN MD [id number] Transcribed By: PETER on 09/17/18 13 58 COPY TO: ARCADIO CHANDLER M.D. [[facility]] CMP [id number] 10:29:00* Test Item Value Reference Range Interpretation Comments Glucose; Above High Threshold (test code = 2345-7) 118 mg/dL 65- 99 BUN (test code = 3094-0) 19 mg/dL 8-27 Creatinine; Above High Threshold (test code = 2160-0) 1.57 mg/dL 0.76-1.27 eGFR If NonAfricn Am; Below Low Threshold (test code = 28543 -3) 42 mL/min/1.7 >59 eGFR If Africn Am; Below Low Threshold (test code = 23029-5) 48 mL/min/1.7 >59 BUN/Creatinine Ratio (test code = 3097-3) 12 10-24 Sodium, Serum (test code = 2951-2) 138 mmol/L 134-144 Potassium; Above High Threshold (test code = 2823-3) 5.3 mmol/L 3 .5-5.2 Chloride (test code = 2075-0) 96 mmol/L 96-106 Carbon Dioxide, Total (test code = 2027-9) 24 mmol/L 20-29 Calcium, Serum (test code = 64339-0) 10.0 mg/dL 8.6-10.2 Protein, Total (test code = 2885-2) 7.6 g/dL 6.0-8.5 Albumin (test code = 1751-7) 4.8 g/dL 3.5-4.8 Globalulin, Total (test code = 31110-3) 2.8 g/dL 1.5-4.5 A/G Ratio (test code = 1759-0) 1.7 1.2-2.2 Bilirubin, Total (test code = 1975-2) 0.5 mg/dL 0.0-1.2 Alkaline Phosphatase (test code = 6768-6) 80 {IU/L} 39-117 AST (SGOT) (test code = 1920-8) 38 {IU/L} 0-40 ALT (SGPT) (test code = 1742-6) 42 {IU/L} 0-44 [facility]] CBC (INCLUDES DIFF/PLT)2017-11-13 10:29:00* Test Item Value Reference Range Interpretation Comments WBC (test code = 6690-2) 6.6 {x10E3/uL} 3.4-10.8 RBC (test code = 789-8) 5.34 {x10E6/uL} 4.14-5.80 Hemoglobin (test code = 718-7) 15.7 g/dL 13.0-17.7 Hematocrit (test code = 4544-3) 47.5 % 37.5-51.0 MCV (test code = 787-2) 89 fL 79-97 MCH (test code = 785-6) 29.4 pg 26.6-33.0 MCHC (test code = 786-4) 33.1 g/dL 31.5-35.7 RDW (test code = 788-0) 14.0 % 12.3-15.4 Platelets (test code = 777-3) 215 {x10E3/uL} 150-379 Neutrophils (test code = 770-8) 63 % Not Estab. Lymphs (test code = 736-9) 26 % Not Estab. Monocytes (test code = 5905-5) 9 % Not Estab. Eos (test code = 713-8) 2 % Not Estab. Basos (test code = 706-2) 0 % Not Estab. Immature Cells (test code = Immature Cells) See Comment Neutrophils (Absolute) (test code = 751-8) 4.1 {x10E3/uL} 1.4-7.0 Lymphs (Absolute) (test code = 731-0) 1.7 {x10E3/uL} 0.7-3.1 Monocytes(Absolute) (test code = 742-7) 0.6 {x10E3/uL} 0.1-0.9 Eos (Absolute) (test code = 711-2) 0.1 {x10E3/uL} 0.0-0.4 Baso (Absolute) (test code = 704-7) 0.0 {x10E3/uL} 0.0-0.2 Immature Granulocytes (test code = 52152-3) 0 % Not Estab. Immature Grans (Abs) (test code = 14146-0) 0.0 {x10E3/uL} 0.0-0.1 NRBC (test code = 18401-2) See Comment Hematology Comments: (test code = 08459-4) See Comment [facility]] LIPID [id number] 10:29:00* Test Item Value Reference Range Interpretation Comments Cholesterol, Total (test code = 2093-3) 183 mg/dL 100-199 Triglycerides; Above High Threshold (test code = 2571-8) 219 mg/dL 0-149 HDL Cholesterol (test code = 2085-9) 50 mg/dL >39 VLDL Cholesterol Jax; Above High Threshold (test code = 08396-6) 44 mg/dL 5-40 LDL Cholesterol Calc (test code = 75967-7) 89 mg/dL 0-99 Comment: (test code = Comment:) See Comment LDL/HDL Ratio (test code = 86646-7) 1.8 {ratio} 0.0-3.6 LDL/HDL Ratio Men Women 1/2 Avg.Risk 1.0 1.5 Avg.Risk 3.6 3.2 2X Avg.Risk 6.2 5.0 3X Avg.Risk 8.0 6.1 [facility]] HEMOGLOBIN [id number] 10:29:00* Test Item Value Reference Range Interpretation Comments Hemoglobin A1c; Above High Threshold (test code = 4548-4) 6.2 % 4.8-5.6 . Prediabetes: 5.7 - 6.4 Diabetes: >6.4 Glycemic control for adults with diabetes: <7.0 [facility]] TSH, 3RD [id number] 10:29:00* Test Item Value Reference Range Interpretation Comments TSH (test code = 58568-7) 3.430 {uIU/mL} 0.450-4.500 [facility]] B TYPE NATRIURETIC PEPTIDE (BNP)2017-11-13 10:29:00* Test Item Value Reference Range Interpretation Comments B-Type Natriuretic Peptide (test code = 16414-7) 22.8 pg/mL 0.0-1 00.0 [facility]] [id number] 10:29:00* Test Item Value Reference Range Interpretation Comments Magnesium, Serum (test code = 50481-9) 2.3 mg/dL 1.6-2.3 [facility]
--- NOTE | 2019-12-29 11:20 | NUR ---
Recvd patient from PACU. AAOx4, TUNUNAK, Assisted him to bed, dressing intact on lower back, IV intact, denies any pain, not in any distress this time, call light in reach, keep monitoring
--- NOTE | 2019-12-29 11:53 | Operative Report ---
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 PROCEDURE: Right L3-4 laminotomy, medial facetectomy, and microsurgical diskectomy. ANESTHESIA: General. INDICATIONS: The patient is an 79-year-old man who presents with a right L3-4 disk herniation with intractable L4 radiculopathy and was taken to surgery for microsurgical diskectomy. PROCEDURE IN DETAIL: After induction of general anesthesia, the patient was placed on the operating table in prone position over Markell frame. The lumbar region was prepped and draped in sterile fashion. A preoperative x-ray was obtained. The lumbar region was prepped and draped in sterile fashion. A small incision was created overlying the L3-4 segment along the midline and the lumbar fascia was opened in right of midline and a subperiosteal dissection was carried out to expose the right side of the L3 and L4 lamina and the medial aspect of the facet joint. A second x-ray confirmed correct localization. The operating microscope was brought in. A high-speed drill equipped with marcia bur was used to drill the inferior aspect of the lamina of L3 and the medial rim of the L3-4 hypertrophic facet joint. The ligamentum flavum was resected. The dural sac and the traversing L4 nerve root were exposed. The herniated disk material came into view over the shoulder of the L4 nerve root. The posterior longitudinal ligament was incised with a #11 blade and the herniated disk material was retrieved and removed with a microball probe, opening into the annulus of this was a further enlargement with a #11 blade and the contents of the disks were evacuated with curettes and pituitary instruments. Meticulous hemostasis was secured. Excellent decompression was achieved. A small piece of Gelfoam was left in the lateral recess to maintain hemostasis. The wound was irrigated with bacitracin solution and closed in multiple layers with 0 and 2-0 Vicryl sutures. The skin was closed with 3-0 Monocryl sutures in subcuticular fashion. Steri-Strips and dressings were applied. The patient was awakened, extubated, and taken to postanesthesia care unit in stable condition. No intraoperative complications were encountered. ESTIMATED BLOOD LOSS: 20 mL. Link Kenny MD PP/TONYA /[id number]
[2019-12-29] MEDS: LACTATED RINGER'S 1,000 ML IV SCH ×2 (11:56→21:27)
[2019-12-29 12:19] VITALS: BP 121/73
[2019-12-29 12:21] VITALS: BP 121/73
[2019-12-29] MEDS ORDERED: ROCURONIUM BROMIDE 10 MG/ML 5ML VIAL IV ONE (13:10)
[2019-12-29] MEDS ORDERED: LIDOCAINE HCL 2% LOCAL INJ 5 ML SDV VIAL INJ ONE (13:10)
[2019-12-29] MEDS ORDERED: ONDANSETRON HCL INJ 2MG/ML 2ML 2 MG/ML VIAL ONE (13:10)
[2019-12-29] MEDS ORDERED: GLYCOPYRROLATE INJ 0.2 MG/ML VIAL ONE (13:10)
[2019-12-29] MEDS ORDERED: LIDOCAINE HCL 2% JELLY 5 ML TUBE ONE (13:10)
[2019-12-29] MEDS ORDERED: NEOSTIGMINE 1 MG/ML 10ML VIAL ONE (13:10)
[2019-12-29] MEDS ORDERED: SEVOFLURANE INHAL SOLN 250 ML PEN BTL ONE (13:10)
[2019-12-29] MEDS ORDERED: EPHEDRINE SULFATE INJ 50 MG/ML VIAL ONE (13:10)
[2019-12-29] MEDS ORDERED: DEXAMETHASONE SOD PHOS INJ 4 MG/ML VIAL ONE (13:10)
[2019-12-29] MEDS ORDERED: PROPOFOL IV EMULSION 10 MG/ML 20 ML VIAL ONE (13:10)
[2019-12-29 13:53] VITALS: BP 121/73
[2019-12-29] MEDS: OXYCODONE/ACETAMINOPHEN 5-325 1 EACH TABLET PO PRN ×2 (14:35→22:05)
[2019-12-29 16:06] VITALS: BP 160/87
[2019-12-29] MEDS: CEFAZOLIN SOD 1 GM/NS 50ML 50 ML IV SCH (16:07)
[2019-12-29] MEDS ORDERED: NON-FORMULARY MEDICATION (Losartan/Hydrochlorothiazide (Losartan-Hctz 100-12.5 Mg Tab) 1 T PO SCH (17:00)
[2019-12-29] MEDS: GABAPENTIN 100 MG CAP PO SCH (17:02)
[2019-12-29] MEDS: BUPROPION HCL 150 MG TABCR PO SCH (17:02)
--- NOTE | 2019-12-29 17:12 | Diagnostic Imaging Report ---
Lumbar spine, lateral intraoperative view at 8:39 hours Lumbar spine, lateral intraoperative view at 8:47 hours INDICATION: ^[id number] ^[id number] ^X-RAY FOR SURGICAL LEVEL. Comparison: None available. Discussion: Intraoperative lateral views of the lumbar spine are obtained with initial localization of the L3-4 level with subsequent instrumentation of the L3-4 facet region. Severe degenerative changes are noted at L3-4, L4-5 and L5-S1 with vacuum phenomena and facet arthropathy. IMPRESSION: Localization of the L3-4 level on intraoperative spot radiographs. Signed by: Antonino Lui MD on 12/29/2019 5:09 PM
--- NOTE | 2019-12-29 17:12 | Diagnostic Imaging Report ---
Lumbar spine, lateral intraoperative view at 8:39 hours Lumbar spine, lateral intraoperative view at 8:47 hours INDICATION: ^[id number] ^[id number] ^X-RAY FOR SURGICAL LEVEL. Comparison: None available. Discussion: Intraoperative lateral views of the lumbar spine are obtained with initial localization of the L3-4 level with subsequent instrumentation of the L3-4 facet region. Severe degenerative changes are noted at L3-4, L4-5 and L5-S1 with vacuum phenomena and facet arthropathy. IMPRESSION: Localization of the L3-4 level on intraoperative spot radiographs. Signed by: Antonino Lui MD on 12/29/2019 5:09 PM
[2019-12-29 19:00] VITALS: BP 162/98
--- NOTE | 2019-12-29 19:45 | NUR ---
BEDSIDE SHIFT REPORT RECEIVED FROM DAY RN. PT IS ALERT AND ORIENTED X3. RESPIRATIONS ARE REGULAR AND UNLABORED. LOWER BACK DRESSING IS DRY AND INTACT. 20G RT HAND LR INFUSING AT 120 /HR. SITE HEALTHY. PT VOIDING SMALL AMOUNTS FREQUENTLY. SCD ON. ATTEMPT TO PUT ON [place] CATH BUT UNABLE TO GET CATH TO STAY. CALL LIGHT WITHIN REACH. BED LOCKED AND IN LOW POSITION.
[2019-12-29 20:00] VITALS: BP 162/98
[2019-12-29] MEDS ORDERED: ZOLPIDEM TARTRATE 5 MG TAB PO PRN (21:00)
[2019-12-29] MEDS ORDERED: DONEPEZIL HCL 5 MG TAB PO SCH (21:00)
[2019-12-30 00:07] VITALS: BP 175/98
[2019-12-30] MEDS: CEFAZOLIN SOD 1 GM/NS 50ML 50 ML IV SCH ×2 (00:18→09:15)
[2019-12-30] MEDS: LACTATED RINGER'S 1,000 ML IV SCH (02:40)
[2019-12-30 04:25] VITALS: BP 148/82
[2019-12-30] MEDS ORDERED: LEVOTHYROXINE SODIUM 100 MCG TAB PO SCH (06:00)
--- NOTE | 2019-12-30 07:25 | NUR ---
Received report from off going nurse. Pt sitting up in chair. Bed in lowest position. Bed alarm on level 1.
[2019-12-30] MEDS ORDERED: PANTOPRAZOLE SOD 40 MG TABEC PO SCH (07:30)
[2019-12-30 08:44] VITALS: BP 155/100
[2019-12-30 08:53] VITALS: BP 155/100
[2019-12-30] MEDS ORDERED: HYDROCHLOROTHIAZIDE 25 MG TAB PO SCH (09:00)
[2019-12-30] MEDS ORDERED: LORATADINE 10 MG TAB PO SCH (09:00)
[2019-12-30] MEDS ORDERED: ZINC SULFATE 220 MG CAP PO SCH (09:00)
[2019-12-30] MEDS ORDERED: LOSARTAN POTASSIUM 100 MG TAB PO SCH (09:00)
[2019-12-30] MEDS ORDERED: NON-FORMULARY MEDICATION (Levocetirizine Dihydrochloride 5 MG) PO SCH (09:00)
[2019-12-30] MEDS ORDERED: FENOFIBRATE 145 MG TAB PO SCH (09:00)
--- NOTE | 2019-12-30 09:00 | NUR ---
Pt unavailable at this time. Will follow up as able. AKIN REINOSO [facility] O: [phone]
[2019-12-30] MEDS: BUPROPION HCL 150 MG TABCR PO SCH (09:25)
[2019-12-30] MEDS: GABAPENTIN 100 MG CAP PO SCH (09:25)
[2019-12-30] MEDS ORDERED: NORCO 7.5-3251 EACH PO (11:39)
--- NOTE | 2019-12-30 12:10 | NUR ---
IV removed at 1205: no redness, no infiltration, and cath intact. Pt off floor via wheelchair. Pt in no apparent distress.
== END 2019-12-30 12:13 | disposition home or self-care (01) ==
LOC: OR 07:18 → PACU V 09:48 → MED/SURG 10:47
PROVIDERS: ADMIT Neurological Surgery; ATTEND Neurological Surgery
DX: M51.16 Intervertebral disc disorders with radiculopathy, lumbar region (principal); M48.062 Spinal stenosis, lumbar region with neurogenic claudication; Z20.828 Contact with and (suspected) exposure to other viral communicable diseases; E11.9 Type 2 diabetes mellitus without complications; I10 Essential (primary) hypertension
CPT/HCPCS: 36415 ×2; 63030; 71046; 72020; 80048; 82948; 85025; 85610; 85730; 86850; 86900; 88304; 93005; 97161; 97530; G0378 ×2; J0131; J0690 ×2; J1170; J3370; J7121 ×2; S0164; U0002; J1100; J2001; J2405; J2710

== ENCOUNTER 2020-02-08 10:35 | Outpatient (RCR) | payer MEDICARE, OTHER ==
[~2020-02-08 10:35] MED LIST changes: -ACETAMINOPHEN 1000 MG/100 ML 100 ML IV ONE; -IBUPROFEN 800MG/ 200ML 200 ML IV ONE; -LIDOCAINE 1% W/EPINEPHRINE 20 ML VIAL ONE; -LIDOCAINE HCL (LTA) 4 ML SOLN ONE; +NORCO 7.5-3251 EACH PO; -THROMBIN FOR SOLN 5,000 UNIT VIAL ONE; -VANCOMYCIN HCL 1 GM VIAL ONE
== END 2020-02-09 ==
LOC: PT 10:35
PROVIDERS: ATTEND Neurological Surgery
DX: M48.062 Spinal stenosis, lumbar region with neurogenic claudication (principal); M62.81 Muscle weakness (generalized); R26.9 Unspecified abnormalities of gait and mobility; R26.81 Unsteadiness on feet

== ENCOUNTER 2020-03-06 12:55 | Outpatient (RCR) | payer MEDICARE, OTHER | END 2020-03-11 | LOC: PT 12:55 | PROVIDERS: ATTEND Neurological Surgery | DX: M48.062 Spinal stenosis, lumbar region with neurogenic claudication (principal); M62.81 Muscle weakness (generalized); R26.81 Unsteadiness on feet; R26.9 Unspecified abnormalities of gait and mobility | CPT/HCPCS: 97139 ==

== ENCOUNTER 2020-04-06 10:49 | Outpatient (RCR) | payer MEDICARE, OTHER | END 2020-04-08 | LOC: PT 10:49 | PROVIDERS: ATTEND Neurological Surgery | DX: M48.062 Spinal stenosis, lumbar region with neurogenic claudication (principal); M62.81 Muscle weakness (generalized); R26.81 Unsteadiness on feet; R26.9 Unspecified abnormalities of gait and mobility | CPT/HCPCS: 97139 ==

== ENCOUNTER 2020-04-16 11:00 | Outpatient (RCR) | payer MEDICARE, OTHER | END 2020-05-09 | LOC: PT 11:00 | PROVIDERS: ATTEND Neurological Surgery | DX: M48.062 Spinal stenosis, lumbar region with neurogenic claudication (principal); M62.81 Muscle weakness (generalized); R26.81 Unsteadiness on feet; R26.9 Unspecified abnormalities of gait and mobility ==

== ENCOUNTER → 2020-06-25 | Outpatient (CLI) | payer MEDICARE, OTHER ==
[~2020-06-25] MED LIST changes: +GADOBENATE DIMEGLUMINE 1 ML IV ONE
[2020-06-25 13:22] LABS: CREATININE, SERUM 1.33 mg/dL (0.72-1.25)
== END ==
LOC: MRI 12:25
PROVIDERS: ATTEND Neurological Surgery
DX: M51.16 Intervertebral disc disorders with radiculopathy, lumbar region (principal)
CPT/HCPCS: 36415; 72158; 82565; 84520; A9577

== ENCOUNTER 2020-08-07 13:00 | Outpatient (RCR) | payer MEDICARE, OTHER ==
[~2020-08-07 13:00] MED LIST changes: -GADOBENATE DIMEGLUMINE 1 ML IV ONE
== END 2020-08-08 ==
LOC: PT 13:00
PROVIDERS: ATTEND Neurological Surgery
DX: M48.062 Spinal stenosis, lumbar region with neurogenic claudication (principal)

== ENCOUNTER 2020-09-06 13:52 | Outpatient (RCR) | payer MEDICARE, OTHER | END 2020-09-08 | LOC: PT 13:52 | PROVIDERS: ATTEND Neurological Surgery | DX: M48.062 Spinal stenosis, lumbar region with neurogenic claudication (principal) | CPT/HCPCS: 97139 ==

== ENCOUNTER → 2020-12-31 | Outpatient (CLI) | payer MEDICARE, OTHER ==
[2020-12-31 10:23] LABS: CREATININE, SERUM 1.68 mg/dL (0.72-1.25)
== END ==
LOC: MRI 09:26
PROVIDERS: ATTEND Neurological Surgery
DX: M48.062 Spinal stenosis, lumbar region with neurogenic claudication (principal)
CPT/HCPCS: 36415; 72148; 82565; 84520